=== PATIENT | male | born 1990 | race Caucasian/White ===

== ENCOUNTER 2017-11-30 18:41 | Emergency (ER) | payer SELFPAY ==
[~2017-11-30] VITALS: Ht 188 cm; Wt 77.0 kg
[~2017-11-30 18:41] MED LIST: Z.0.NO CURRENT MEDS
[2017-11-30 18:48] VITALS: BP 134/82; PULSE 81; RESP 20; TEMP 98.1; O2SAT 98
[2017-11-30] MEDS ORDERED: SODIUM CHLORIDE 0.9% FLUSH 10 ML FLUSH IVF PRN (19:15)
[2017-11-30] MEDS ORDERED: SODIUM CHLOR 0.9% 1000 ML INJ 1,000 ML IV ONE (19:15)
--- NOTE | 2017-11-30 19:29 | PD ---
HPI Chief Complaint: OD/ Ingestion Time Seen by Provider: 19:03 Travel History International Travel<30 days: No Contact w/Intl Traveler<30days: No Traveled to known affect area: No History of Present Illness HPI Patient is a 27-year-old male who presents the emergency room after a drug overdose. Patient reports that he uses heroin recreationally, reports that his friend injected heroin tonight and he "passed out on the couch." As per EMS, they found him with agonal respirations, 2 mg of IM Narcan was administered and patient did regain consciousness. Patient with no complaints at this time, denies any headache or dizziness, denies any chest pain or shortness of breath. Of note, patient denies any suicidal or homicidal ideation. Patient has no complaints at this time. [facility] Past Medical History Diminished Hearing: No Hepatitis: Yes (C) Immunizations Current: No Tetanus Vaccination: Unknown Influenza Vaccination: No Past Surgical History Oral Surgery: Yes (wisdom teeth removed) Social History Alcohol Use: No Tobacco Use: Yes (1/2 ppd) Substance Use: Yes (marijuana & heroin occasionally, last used 11/30/17) Allergies-Medications (Allergen,Severity, Reaction): Coded Allergies: No Known Allergies (Verified Allergy, Unknown, 11/30/17) Reported Meds & Prescriptions Reported Meds & Active Scripts Active No Active Prescriptions or Reported Medications Review of Systems General / Constitutional: No: Fever Eyes: No: Visual changes HENT: No: Headaches Cardiovascular: No: Chest Pain or Discomfort Respiratory: No: Shortness of Breath Gastrointestinal: No: Abdominal Pain Genitourinary: No: Dysuria Musculoskeletal: No: Pain Skin: No Rash Neurologic: No: Weakness Psychiatric: Positive: Substance Abuse (Heroin abuse), No: Anxiety, Depression Endocrine: No: Polydipsia Hematologic/Lymphatic: No: Easy Bruising Physical Exam Narrative GENERAL: No acute distress, nontoxic SKIN: Focused skin assessment warm/dry. HEAD: Atraumatic. Normocephalic. EYES: Pupils equal and round. No scleral icterus. No injection or drainage. ENT: No nasal bleeding or discharge. Mucous membranes pink and moist. NECK: Trachea midline. No JVD. CARDIOVASCULAR: Regular rate and rhythm. No murmur appreciated. RESPIRATORY: No accessory muscle use. Clear to auscultation. Breath sounds equal bilaterally. GASTROINTESTINAL: Abdomen soft, non-tender, nondistended. Hepatic and splenic margins not palpable. MUSCULOSKELETAL: No obvious deformities. No clubbing. No cyanosis. No edema. Patient with track early to left AC with no signs of infection NEUROLOGICAL: Awake and alert. No obvious cranial nerve deficits. Motor grossly within normal limits. Normal speech. PSYCHIATRIC: Appropriate mood and affect; insight and judgment normal. Data Data Last Documented VS Vital Signs Date Time Temp Pulse Resp B/P (MAP) Pulse Ox O2 Delivery O2 Flow Rate FiO2 11/30/17 20:14 81 18 139/77 (97) 99 Room Air 11/30/17 18:48 98.1 Orders Orders Sodium Chloride 0.9% Flush (Ns Flush) (11/30/17 19:15) Sodium Chlor 0.9% 1000 Ml Inj (Ns 1000 M (11/30/17 19:15) MDM Medical Decision Making Medical Screen Exam Complete: Yes Emergency Medical Condition: Yes Medical Record Reviewed: Yes Interpretation(s) Vital Signs Date Time Temp Pulse Resp B/P (MAP) Pulse Ox O2 Delivery O2 Flow Rate FiO2 11/30/17 18:48 98.1 81 20 134/82 (99) 98 Differential Diagnosis Drug overdose Narrative Course 27-year-old male presents to emergency room after an accidental drug overdose today, patient was administered 2 mg of IM Narcan by EMS prior to arrival to the emergency room. Patient currently with no complaints at this time. Patient denies suicidal or homicidal ideations. During the course of the patients emergency department visit, the patients history, examination, and differential diagnosis were reviewed with the patient. The patient was placed on a secured entrance monitor with oximetry and frequent blood pressure monitoring. The patient had refused IV access. He is alert and oriented 3, currently with no complaints at this time. Decision was to monitor patient on secured entrance monitor as well as continuous pulse oximetry Patient with no complaints at this time Discussed need for cessation of drugs. Patient will follow up with pcp and will return to ER as needed Patient was monitored for 3-1/2 hours, patient instructed not to use drugs, he will follow-up with his primary care doctor and will return to emergency room as needed. Diagnosis Primary Impression: Heroin overdose Qualified Codes: T40.1X1A - Poisoning by heroin, accidental (unintentional), initial encounter Patient Instructions: General Instructions Additional Instructions: Please stop using drugs Scripts No Active Prescriptions or Reported Meds Disposition: DISCHARGE HOME Condition: Stable Brianna Marcum DO Nov 30, 2017 19:29
[2017-11-30 20:14] VITALS: BP 139/77; PULSE 81; RESP 18; O2SAT 99
[2017-11-30 22:07] VITALS: BP 160/80; PULSE 83; RESP 18; O2SAT 99
== END 2017-11-30 22:14 | disposition home or self-care (01) ==
LOC: NEPD 18:41
DX: T40.1X1A Poisoning by heroin, accidental (unintentional), initial encounter (principal); F17.200 Nicotine dependence, unspecified, uncomplicated; F12.90 Cannabis use, unspecified, uncomplicated
CPT/HCPCS: 99284